=== PATIENT | female | born 1945 | race Caucasian/White ===

== ENCOUNTER 2018-08-08 09:31 | Outpatient (CLI) | payer OTHER, MEDICAID | END 2018-08-08 21:26 | disposition home or self-care (01) | LOC: MRD 09:31 | PROVIDERS: ATTEND Family Medicine | DX: J18.1 Lobar pneumonia, unspecified organism (principal); R05 Cough; R07.89 Other chest pain; R06.03 Acute respiratory distress | CPT/HCPCS: 71046; 71100 ==